=== PATIENT | female | born 1980 | race Two or more races ===

== ENCOUNTER 2025-05-09 17:28 | Emergency (ER) | payer OTHER ==
[~2025-05-09] VITALS: Ht 170.2 cm; Wt 64.9 kg
[2025-05-09] MEDS ORDERED: LAMICTAL200 MG PO (17:33)
[2025-05-09] MEDS ORDERED: NEURONTIN600 M1 PO (17:33)
[2025-05-09] MEDS ORDERED: CLONAZEPAM1 MG PO (17:33)
[2025-05-09] MEDS ORDERED: 0.9 % SODIUM CHLORIDE 1,000 ML IV STA (18:00)
[2025-05-09] MEDS ORDERED: ACETAMINOPHEN 325 MG TABLET PO ONE (18:00)
[2025-05-09] MEDS ORDERED: CEFTRIAXONE SODIUM 1,000 MG VIAL IV ONE (18:15)
[2025-05-09] MEDS ORDERED: FAMOTIDINE/PF 20 MG/2 ML VIAL IV ONE (18:15)
[2025-05-09] MEDS ORDERED: CEFTRIAXONE SODIUM 1,000 MG VIAL ONE (18:50)
[2025-05-09] MEDS ORDERED: ACETAMINOPHEN 500 MG GEL..CAP PO ONE (18:50)
[2025-05-09] MEDS ORDERED: FAMOTIDINE/PF 20 MG/2 ML VIAL ONE (18:50)
[2025-05-09 18:51] LABS: BASO % 1.1 % (0.1-1.2); EOS # 0.25 (0.04-0.54); EOS % 1.8 % (0.7-7.0); LYMPH # 2.81 (1.18-3.74); LYMPH % 19.9 % (19.3-53.1); MEAN PLATELET VOLUME 10.90 fl (9.4-12.4); MONO # 0.84 (0.24-0.82); MONO % 6.0 % (4.7-12.5); NEUT # 10.00 (1.56-6.13); NEUT % 70.9 % (34.0-71.1); RED CELL DISTRIBUTION WIDTH 12.0 % (11.6-14.4)
[2025-05-09 19:20] LABS: URINE APPEARANCE Cloudy; URINE BILIRRUBIN Negative (NEGATIVE); URINE BLOOD Moderate; URINE COLOR Dark Yellow; URINE GLUCOSE Negative (NEGATIVE); URINE KETONE Negative (NEGATIVE); URINE LEUKOCYTE Large; URINE NITRATE Negative; URINE UROBILINOGEN 1.0 E.U./dl
[2025-05-09 19:24] LABS: URINE BACTERIA 4082.2 uL (0.0-1933); URINE EPITHELIAL CELLS 7.0 uL (0.0-38.8); URINE RBC 81.2 uL (0.0-20.8); URINE WBC 4109.9 uL (0.0-23.2)
[2025-05-09 19:27] LABS: URINE CAST 0.73 uL (0.0-1.40); URINE PROTEIN 100 (NEGATIVE)
[2025-05-09 19:33] LABS: INR 1.01
[2025-05-09 19:55] LABS: ALT/SGPT 17.0 U/L (12-78); AST/SGOT 12.0 U/L (15-37); BILIRUBIN TOTAL 0.39 mg/dL (0.3-1.2); BUN CREA RATIO 19.0 (7.0-25.0); CREATININE SERUM 0.8 mg/dL (0.55-1.02); GFR 78.28; GLOBULINA 4.1 G/DL (2.4-3.5); GLUCOSE FASTING 78.0 mg/dL (65-100); OSMOLALITY SERUM 279.0 MOSM/KG (275-295)
[2025-05-09] MEDS ORDERED: MACROBID 100 M100 MG PO (21:20)
[2025-05-09] MEDS ORDERED: PYRIDIUM100 M1 PO (21:20)
== END 2025-05-09 21:56 | disposition home or self-care (01) ==
LOC: ER 17:28
PROVIDERS: General Practice
DX: N39.0 Urinary tract infection, site not specified (principal); M79.7 Fibromyalgia; F31.9 Bipolar disorder, unspecified; Z88.2 Allergy status to sulfonamides; Z88.8 Allergy status to other drugs, medicaments and biological substances
CPT/HCPCS: 36415; 74176; 96365; 96366; 99283; J3490; J7030

== ENCOUNTER 2025-05-15 16:24 | Emergency (ER) | payer OTHER ==
[~2025-05-15] VITALS: Ht 170.2 cm; Wt 65.8 kg
[~2025-05-15 16:24] MED LIST: CLONAZEPAM1 MG PO; LAMICTAL200 MG PO; MACROBID 100 M100 MG PO; NEURONTIN600 M1 PO; PYRIDIUM100 M1 PO
[2025-05-15 18:29] LABS: BASO % 1.2 % (0.1-1.2); EOS # 0.23 (0.04-0.54); EOS % 2.0 % (0.7-7.0); LYMPH # 2.95 (1.18-3.74); LYMPH % 25.8 % (19.3-53.1); MEAN PLATELET VOLUME 10.50 fl (9.4-12.4); MONO # 0.86 (0.24-0.82); MONO % 7.5 % (4.7-12.5); NEUT # 7.24 (1.56-6.13); NEUT % 63.3 % (34.0-71.1); RED CELL DISTRIBUTION WIDTH 11.8 % (11.6-14.4)
[2025-05-15 18:37] LABS: URINE APPEARANCE Clear; URINE BILIRRUBIN Negative (NEGATIVE); URINE BLOOD Negative; URINE COLOR Yellow; URINE GLUCOSE Negative (NEGATIVE); URINE KETONE Negative (NEGATIVE); URINE LEUKOCYTE Negative; URINE NITRATE Negative; URINE PROTEIN Negative (NEGATIVE); URINE UROBILINOGEN 0.2 E.U./dl
[2025-05-15 18:39] LABS: URINE BACTERIA 318.0 uL (0.0-1933); URINE EPITHELIAL CELLS 16.4 uL (0.0-38.8); URINE RBC 5.7 uL (0.0-20.8); URINE WBC 4.3 uL (0.0-23.2)
[2025-05-15 18:43] LABS: BUN CREA RATIO 13.0 (7.0-25.0); CREATININE SERUM 0.77 mg/dL (0.55-1.02); GFR 81.82; GLUCOSE FASTING 100.0 mg/dL (65-100); OSMOLALITY SERUM 280.0 MOSM/KG (275-295)
[2025-05-15 18:49] LABS: URINE CAST 0.00 uL (0.0-1.40)
[2025-05-15] MEDS ORDERED: KETOROLAC TROMETHAMINE 30 MG VIAL IM ONE (20:15)
[2025-05-15] MEDS ORDERED: CEFTRIAXONE SODIUM 2,000 MG VIAL IM ONE (20:15)
[2025-05-15] MEDS ORDERED: KETOROLAC TROMETHAMINE 30 MG VIAL ONE (20:49)
[2025-05-15] MEDS ORDERED: CEFTRIAXONE SODIUM 2,000 MG VIAL ONE (20:49)
[2025-05-15] MEDS ORDERED: LIDOCAINE HCL 1% 10ML VIAL ONE (20:50)
== END 2025-05-15 21:22 | disposition home or self-care (01) ==
LOC: ER 16:25
PROVIDERS: General Practice
DX: N39.0 Urinary tract infection, site not specified (principal); Z88.2 Allergy status to sulfonamides; Z88.8 Allergy status to other drugs, medicaments and biological substances
CPT/HCPCS: 96372; 99282; J0696; J1885